=== PATIENT | male | born 1995 | race Caucasian/White ===

== ENCOUNTER 2019-04-25 16:38 | Emergency (ER) | payer OTHER ==
[~2019-04-25] VITALS: Ht 182.9 cm; Wt 79.1 kg
--- NOTE | 2019-04-25 16:54 | NUR ---
PT C/O NAUSEA AND FEVERISH SINCE MONDAY. DENIES BEING AROUND ANYONE THATS SICK. DURING SHOWER TODAY AT ABOUT 1500, PT + LOC "FOR NOT VERY LONG". DENIES PAIN FROM FALLING IN SHOWER. CONNECTED TO MONITORING. CALL LIGHT IN REACH. AWAITING ORDERS AT THIS TIME.
--- NOTE | 2019-04-25 17:06 | NUR ---
ORTHOSTATIC BP COMPLETE. PT DENIES DIZZINESS OR NAUSEA. LAB AT BEDSIDE.
[2019-04-25 17:17] LABS: BASOPHILS # (AUTO) 0.02 x10^3/uL (0-0.1); BASOPHILS % (AUTO) 0 % (0-1); EOSINOPHILS # (AUTO) 0.01 x10^3/uL (0-0.4); EOSINOPHILS % (AUTO) 0 % (1-7); LYMPHOCYTES # (AUTO) 1.03 x10^3/uL (1-3.4); LYMPHOCYTES % (AUTO) 17 % (22-44); MD NO; MEAN CORPUSCULAR HEMOGLOBIN 29.1 pg (27.5-34.5); MEAN CORPUSCULAR HGB CONC 32.8 g/dL (33.2-36.2); MEAN CORPUSCULAR VOLUME 88.7 fL (81-97); MEAN PLATELET VOLUME 7.7 fL (7.4-10.4); MONOCYTES # (AUTO) 0.57 x10^3/uL (0.2-0.8); MONOCYTES % (AUTO) 10 % (2-9); NEUTROPHILS # (AUTO) 4.41 x10^3/uL (1.8-6.8); NEUTROPHILS % (AUTO) 73 % (42-75); PLATELET COUNT 227 x10^3/uL (130-400); RED BLOOD COUNT 5.41 x10^6/uL (4.38-5.82); RED CELL DISTRIBUTION WIDTH 13.3 % (9.4-14.8)
--- NOTE | 2019-04-25 17:25 | NUR ---
PT AMBULATED TO RESTROOM WITH STEADY GAIT TO PROVIDE A URINE SAMPLE. UA COLLECTED AND SENT TO LAB.
[2019-04-25 17:27] LABS: ANION GAP 5 mmol/L (5-15); CALCIUM 8.8 mg/dL (8.5-10.1); CHLORIDE 105 mmol/L (98-107); CREATININE 1.29 mg/dL (0.7-1.3)
[2019-04-25 17:46] LABS: MICROSCOPIC INDICATED
[2019-04-25 17:56] LABS: CULTURE INDICATED? YES
--- NOTE | 2019-04-25 18:33 | NUR ---
ALL RESULTS ARE BACK AT THIS TIME. CHART UP FOR RECHECK.
[2019-04-25 18:38] VITALS: BP 114/75
--- NOTE | 2019-04-25 18:38 | NUR ---
PT RESTING COMFORTABLY ON GURNEY. REAGAN.
== END 2019-04-25 19:18 | disposition home or self-care (01) ==
LOC: ED 18:50
DX: R55 Syncope and collapse (principal); N30.00 Acute cystitis without hematuria
CPT/HCPCS: 36415; 71045; 80048; 81001; 82040; 85025; 87086; 93005; 99284